=== PATIENT | female | born 1955 | race Asian ===

== ENCOUNTER → 2016-09-22 | Outpatient (CLI) | payer OTHER ==
--- NOTE | 2016-09-22 14:48 | MA ---
Diagnostic Digital Right Mammography Clinical History: 60-year-old female noted to have a possible neodensity on a recent screening MLO vi ew of the right breast. The patient's mother had breast cancer at age 52. Technique: Digital lateral medial and spot compression MLO view of the right breast is compared with preceding studies dated August 30, 2016, August 27, 2015, August 13, 2014, July 08, 2013, Jun, April 14, 2011, and March 21, 2011. Additionally, exam is CAD checked. Breast density: Type C. CAD evaluation: Negative. Findings: The recently-questioned rounded asymmetry just caudal to a benign rounded calcification kumari s not persist with spot compression, and the appearance is reassuringly unchanged from multiple prece ding studies. There was no abnormality in the orthogonal plane. Impression: Benign mammography. BI-RADS 1 category 2. Recommendation: Routine annual mammographic screening unless otherwise clinically indicated. The patients information is entered into a reminder system with a target due date for the next mammog felecia.
== END ==
LOC: CIMAGING 13:22
DX: Z12.39 Encounter for other screening for malignant neoplasm of breast (principal); R92.2 Inconclusive mammogram; Z80.3 Family history of malignant neoplasm of breast
CPT/HCPCS: G0206

== ENCOUNTER → 2017-09-06 | Outpatient (CLI) | payer OTHER | LOC: CIMAGING 10:42 | PROVIDERS: ATTEND Physician Assistant | DX: Z12.31 Encounter for screening mammogram for malignant neoplasm of breast (principal); Z80.3 Family history of malignant neoplasm of breast | CPT/HCPCS: G0202 ==

== ENCOUNTER → 2018-09-09 | Outpatient (CLI) | payer OTHER | LOC: CIMAGING 10:44 | PROVIDERS: ATTEND Nurse Practitioner Women's Health | DX: Z12.31 Encounter for screening mammogram for malignant neoplasm of breast (principal); Z80.3 Family history of malignant neoplasm of breast ==

== ENCOUNTER → 2018-09-20 | Outpatient (CLI) | payer OTHER | LOC: CIMAGING 12:50 | PROVIDERS: ATTEND Nurse Practitioner Women's Health | DX: R92.8 Other abnormal and inconclusive findings on diagnostic imaging of breast (principal) ==